=== PATIENT | male | born 1955 | race Caucasian/White ===

== ENCOUNTER 2017-08-21 03:28 | Emergency (ER) | payer OTHER ==
[~2017-08-21] VITALS: Ht 177.8 cm; Wt 100.0 kg
[2017-08-21 07:00] VITALS: BP 120/80
== END 2017-08-21 07:05 | disposition home or self-care (01) ==
LOC: EMS 03:29 → EDBD 03:29 → EMS 07:05
DX: S00.83XA Contusion of other part of head, initial encounter (principal); M54.2 Cervicalgia; F12.10 Cannabis abuse, uncomplicated; V43.52XA Car driver injured in collision with other type car in traffic accident, initial encounter; Y93.89 Activity, other specified; Y92.488 Other paved roadways as the place of occurrence of the external cause; Y99.8 Other external cause status
CPT/HCPCS: 70450; 72125; 99284